=== PATIENT | female | born 1985 | race Caucasian/White ===

== ENCOUNTER 2022-03-06 21:13 | Emergency (ER) | payer BC, SELFPAY ==
[2022-03-06 21:16] VITALS: BP 132/78; PULSE 76; RESP 18; TEMP 36.6; O2SAT 98; BMI 32.1
--- NOTE | 2022-03-06 21:46 | CRLHL7_ITS ---
For Patients: As a result of the Cures Act, medical imaging exams and procedure reports are released immediately into your electronic medical record. You may view this report before your referring provider. If you have questions, please contact your health care provider. INDICATION: Right flank pain, history of stones TECHNIQUE: CT Abdomen and pelvis without i.v. contrast. Coronal and sagittal reformats were obtained. COMPARISON: None FINDINGS: Lower chest: Unremarkable. Liver: Unremarkable. Spleen: Unremarkable. Pancreas: Unremarkable. Gallbladder: Unremarkable. Kidney: There is a 9 mm stone present in the distal right ureter causing moderate right renal pelviectasis, pelvicaliectasis, and mild perinephric edema. The left kidney is unremarkable. Adrenal: Unremarkable. Bowel: Unremarkable. The appendix is normal in appearance and size. Vascular: Unremarkable. Lymph: Unremarkable. Peritoneum: Unremarkable. No pneumoperitoneum is seen. No significant ascites is noted. Pelvis: Unremarkable. Soft tissue: Unremarkable. Bone: Unremarkable for age. IMPRESSION: 1. There is a 9 mm stone present in the distal right ureter causing moderate right renal pelviectasis, pelvicaliectasis, and mild perinephric edema. Dictated by Stanley Tay MD @ 03/06/2022 11:00:07 PM Please note that all CT scans at this facility use dose modulation, iterative reconstruction, and/or weight-based dosing when appropriate to reduce radiation dose to as low as reasonably achievable. Dictated by: Stanley Tay MD @ 03/06/2022 23:00:12 (Electronically Signed)
[2022-03-06 21:57] LABS: Appearance Urine Clear (Clear); Bilirubin Urine Negative (Negative); Blood Urine 1+ (Negative); Color Urine Yellow (Yellow); Glucose Urine Negative (Negative); Ketones Urine Negative (Negative); Leukocyte Esterase Urine Negative (Negative); Nitrite Urine Negative (Negative); Protein Urine Negative (Negative); Specific Gravity Urine 1.025 (1.000-1.030); Urobilinogen Urine 0.2 (0.2-1.0)
[2022-03-06] MEDS: KETOROLAC 30 MG/ML inj IVP (22:07)
[2022-03-06] MEDS: 0.9 % SODIUM CHLORIDE 1000 ml 1,000 ML IV (22:07)
[2022-03-06 22:11] LABS: Bacteria Urine Few; WBC Urine 0-2 (0-5)
--- NOTE | 2022-03-06 23:12 | ED_ITS ---
HPI - Abdominal Pain General Chief Complaint: Flank Pain Stated Complaint: Possible kidney stone Time Seen by Provider: 03/06/22 21:40 History of Present Illness HPI narrative: Patient is a 7-year-old woman who comes right flank pain. The pain is in the mid axillary line on the right. She has no nausea no vomiting no fevers no chills but does have significant urinary frequency. Stone. She has had a kidney stone in the past. She describes her pain is severe. No other significant symptoms. Related Data Home Medications Medication Instructions Recorded Confirmed latanoprost 0.005 % eye drops 1 drp OPHTHALMIC (EYE) DAILY 03/06/22 03/06/22 Previous Rx's Medication Instructions Recorded tamsulosin 0.4 mg capsule (Flomax) 0.4 mg PO DAILY #14 cap 03/06/22 Allergies Allergy/AdvReac Type Severity Reaction Status Date / Time Penicillins Allergy Mild Verified 03/06/22 21:20 Review of Systems Status of ROS Reports: 10 or more systems reviewed and unremarkable except as noted in History and below Exam Narrative: Exam Narrative: EXAM GENERAL: Patient appears comfortable and well. EYES: No scleral icterus. LYMPH: No supraclavicular or cervical lymphadenopathy. SKIN: Visible skin seen during exam normal or with benign process only. EXT: No dependent lower extremity pedal edema. HEART: Regular rate and rhythm with no murmurs, rubs, or gallops. LUNGS: Clear to auscultation bilaterally with no crackles or wheezes. ABD: Soft, non tender, non distended. PSYCH: Good eye contact, speech is not pressured. Const: Vital Signs, click to edit/add: Vital Signs - 24 hr 03/06/22 21:16 Temperature 97.8 F Pulse Rate [Right Pulse Oximeter] 76 Respiratory Rate 18 Blood Pressure [Ri ght Upper Arm] 132/78 Pulse Oximetry 98 Course Course Hospital Course: CT of the abdomen pelvis upon my review shows a 9 mm. UA shows hematuria g of Zofran 1 L of normal saline and 30 mg of IV Reevaluation(s) Reevaluation #1: Patient feels that the IV fluids have been helpful. Time: 23:16 Vital Signs Vital signs: Initial Vital Signs Temperature 97.8 F 03/06/22 21:16 Temperature Source Temporal Artery Scan 03/06/22 21:16 Pulse Rate 76 03/06/22 21:16 Pulse Rhythm 03/06/22 21:16 Respiratory Rate 18 03/06/22 21:16 Blood Pressure 132/78 03/06/22 21:16 Blood Pressure Mean 96 03/06/22 21:16 Blood Pressure Position Sitting 03/06/22 21:16 Pulse Oximetry 98 03/06/22 21:16 Oxygen Delivery Method 03/06/22 21:16 Vital Signs Temperature 97.8 F 03/06/22 21:16 Pulse Rate 76 03/06/22 21:16 Respiratory Rate 18 03/06/22 21:16 Blood Pressure 132/78 03/06/22 21:16 Pulse Oximetry 98 03/06/22 21:16 Temperature 97.8 F 03/06/22 21:16 Pulse Rate 76 03/06/22 21:16 Respiratory Rate 18 03/06/22 21:16 Blood Pressure 132/78 03/06/22 21:16 Pulse Oximetry 98 03/06/22 21:16 MDM - Abdominal Pain Lab Data Labs: Lab Results 03/06/22 Range/Units 21:40 Urine Color Yellow (Yellow) Urine Appearance Clear (Clear) Urine pH 6.0 (5.0-8.5) Ur Specific [place] 1.025 (1.000-1.030) Urine Protein Negative (Negative) Urine Glucose (UA) Negative (Negative) Urine Ketones Negative (Negative) Urine Blood 1+ A (Negative) Urine Nitrite Negative (Negative) Urine Bilirubin Negative (Negative) Urine Urobilinogen 0.2 (0.2-1.0) Ur Leukocyte Esterase Negative (Negative) Urine RBC 10-25 A (0-2) Urine WBC 0-2 (0-5) Ur Squamous Epith Cells None (None-Few) Urine Bacteria Few A (None) Discharge Plan Discharge Clinical Impression: Kidney stone Patient Disposition: Home, Self-Care Condition: Stable Instructions: Kidney Stones (ED) Additional Instructions: Rest Fluids Early Branch as directed Flomax filled tomorrow as directed Follow up with your doctor tomorrow by phone to discuss Urology referral Activity Level: No Restrictions Discharge Diet: Regular Prescriptions: New tamsulosin [Flomax] 0.4 mg capsule 0.4 mg PO DAILY Qty: 14 2RF No Action latanoprost 0.005 % drops 1 drp ophthalmic (eye) DAILY 0RF Follow Up/Referrals: Thad Nunez MD [Primary Care Provider] - Stand Alone Forms: MyHealth Info Instructions
[2022-03-06 23:30] VITALS: BP 117/68; PULSE 69; RESP 16; O2SAT 98
== END 2022-03-06 23:35 | disposition home or self-care (01) ==
PROVIDERS: Emergency Provider Internal Medicine; PCP Family Medicine
DX: N20.0 Calculus of kidney (principal)
CPT/HCPCS: 74176; 81003; 81015; 87086; 96374; 99283; 99284; J1885; J7030

== ENCOUNTER 2022-05-15 14:40 | Outpatient (CLI) | payer BC, SELFPAY ==
--- NOTE | 2022-05-15 14:40 | CRLHL7_ITS ---
For Patients: As a result of the Century Cures Act, medical imaging exams and procedure reports are released immediately into your electronic medical record. You may view this report before your referring provider. If you have questions, please contact your health care provider. BILATERAL SCREENING DIGITAL MAMMOGRAM WITH COMPUTER-AIDED DETECTION AND TOMOSYNTHESIS, 05/15/2022 CLINICAL HISTORY: Asymptomatic 37-year-old female for screening mammogram. TECHNIQUE: CC and MLO views were obtained. These mammographic images have been obtained using full-field digital technique. These mammographic images were interpreted with the benefit of computer-aided detection and tomosynthesis. COMPARISON FILM: No comparisons. Baseline study. BREAST COMPOSITION: The breasts are heterogeneously dense, which may obscure small masses. FINDINGS: Possible 2-cm asymmetry in the LEFT breast 3 o`clock position, 10 cm from the nipple. Negative findings in the RIGHT breast. IMPRESSION: Possible LEFT breast asymmetry. RECOMMENDATION: Recommend MLO spot compression view, 90-degree lateral view, and exaggerated CC tomosynthesis view. Additionally, ultrasound may e needed during the diagnostic evaluation. The [facility] will contact the patient for follow-up. ASSESSMENT: BI-RADS Category 0: Incomplete: Need Additional Imaging Evaluation and/or Prior Mammograms for Comparison. A lay language report of this examination will be provided to the patient. NEYDA ASHFORD M.D. Diagnostic/Breast Radiologist [email or web address] Transcribed: 11:[address]/Dictated by: Neyda Ashford MD @ 05/16/2022 8:31:[address]/Dictated by: Neyda Ashford MD @ 05/16/2022 8:31:00 AM (Electronically Signed)
== END 2022-05-15 14:41 | disposition home or self-care (01) ==
LOC: MAMMO 14:41
PROVIDERS: PCP Family Medicine; Visit Provider Nurse Practitioner Family
DX: Z12.31 Encounter for screening mammogram for malignant neoplasm of breast (principal); N63.20 Unspecified lump in the left breast, unspecified quadrant
CPT/HCPCS: 77063; 77067

== ENCOUNTER 2022-05-18 09:47 | Outpatient (CLI) | payer BC, SELFPAY ==
--- NOTE | 2022-05-18 09:45 | CRLHL7_ITS ---
For Patients: As a result of the Cures Act, medical imaging exams and procedure reports are released immediately into your electronic medical record. You may view this report before your referring provider. If you have questions, please contact your health care provider. LEFT DIAGNOSTIC MAMMOGRAM WITH TOMOSYNTHESIS AND COMPUTER-AIDED DETECTION LEFT BREAST ULTRASOUND CLINICAL HISTORY: Possible asymmetry. TECHNIQUE: Digital diagnostic LEFT mammogram spot compression views were obtained. These mammographic images have been obtained using full-field digital technique. These mammographic images were interpreted with the benefit of computer-aided detection. Breast Tomosynthesis was used in this interpretation. COMPARISON FILM: 05/15/2022. BREAST COMPOSITION: The breasts are heterogeneously dense, which may obscure small masses. FINDINGS: Spot compression views demonstrate spreading out of the glandular tissue. Ultrasound over the LEFT superior breast 9 to 3 o???clock position demonstrates no suspicious findings. IMPRESSION: No mammographic or sonographic findings for malignancy. Would recommend return to yearly screening mammography. ASSESSMENT: BI-RADS Category 2: Benign A lay language report of this examination will be provided to the patient. Neyda Ashford M.D. Diagnostic/Breast Radiologist [email or web address] verde/Dictated by: Neyda Ashford MD @ 05/18/2022 12:02:00 PM (Electronically Signed)
--- NOTE | 2022-05-18 10:15 | CRLHL7_ITS ---
For Patients: As a result of the Cures Act, medical imaging exams and procedure reports are released immediately into your electronic medical record. You may view this report before your referring provider. If you have questions, please contact your health care provider. PLEASE SEE DIGITAL DIAGNOSTIC LEFT MAMMOGRAM PERFORMED SAME DAY [email or web address]:[email or web address] verde/Dictated by: Neyda Ashford MD @ 05/18/2022 11:16:00 AM (Electronically Signed)
== END 2022-05-18 09:48 | disposition home or self-care (01) ==
LOC: MAMMO 09:48
PROVIDERS: PCP Family Medicine; Visit Provider Family Medicine
DX: R92.8 Other abnormal and inconclusive findings on diagnostic imaging of breast (principal); R92.2 Inconclusive mammogram
CPT/HCPCS: 76642; 77065; G0279

== ENCOUNTER 2022-09-17 09:52 | Observation (INO) | payer BC, SELFPAY ==
[2022-09-17] VITALS (7 sets, daily range): BP systolic 114–136; BP diastolic 74–93; PULSE 85–100; RESP 16–18; TEMP 36.3–36.9; O2SAT 96–100; BMI 33.0; BMI 31.5
--- NOTE | 2022-09-17 10:22 | ED_ITS ---
HPI - General Adult General Time Seen by Provider: 10:22 Date Seen: 09/17/22 Chief complaint: Ear/Nose/Throat Problem Stated complaint: Throat pain and swelling Time Seen by Provider: 09/17/22 10:04 Source: patient, RN notes reviewed and old records reviewed Mode of arrival: ambulatory Limitations: no limitations History of Present Illness HPI narrative: Patient is a very pleasant 37-year-old female with history of anxiety who comes to the emergency room for evaluation of sore and swollen throat. Patient notes she has had 7 days of sore throat was seen 2 days ago at which time her strep test was negative. Today she had worsening symptoms thus went back and was found to have a positive strep test but sent to the emergency room for if for concerns of peritonsillar abscess by Dr. Collier. Patient notes no vomiting. Patient is having a very hard time talking. She is able to tell me that it is hard for her to swallow. She notes that she feels like her throat is closing. She denies any wheezing at this time. She has not had fevers with this. She notes no past history of strep. In the remote past she did have thrush that she was treated for. Patient denies abdominal pain. Related Data Home Medications Medication Instructions Recorded Confirmed No Known Home Medications 09/14/22 09/17/22 Allergies Allergy/AdvReac Type Severity Reaction Status Date / Time penicillin V Allergy Intermediate Hives Verified 09/17/22 11:34 Penicillins Allergy Mild Verified 09/17/22 11:34 Review of Systems Status of ROS: Reports: 10 or more systems reviewed and unremarkable except as noted in History and below Narrative: Denies any possibility of she is on the seble Const: Denies: fever or chills Eyes: Denies: change in vision ENMT: Reports: throat pain, neck pain (Right greater than left), throat swelling and difficulty swallowing Cardio: Denies: chest pain or shortness of breath with exertion Resp: Denies: shortness of breath, cough or wheezing GI: Reports: difficulty swallowing; Denies: abdominal pain, nausea, vomiting or diarrhea : Denies: painful urination Musculo: Reports: neck pain (Right greater than left) Allergy/Immuno: Reports: throat swelling; Denies: wheezing [facility] Medical History (Updated 09/18/22 @ 16:11 by Ann Meraz MD) Glaucoma History of anxiety disorder Kidney stone Penicillin allergy Sore throat Strep pharyngitis Vaginal delivery Surgical History History of dilation and curettage Family History Mother History of kidney stones Sister Breast cancer Aunt Breast cancer Brother Non Hodgkin's lymphoma Maternal Grandmother CHF (congestive heart failure) Social History (Updated 09/17/22 @ 15:34 by Markell Novak MD) Narrative: . 2 children, a 12-year-old son and a 5-year-old daughter. 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 She reports drinking 1 alcoholic beverage per day. She does not smoke. She did try THC gummy which did not help her pain. Her sister, Omaira Sherman, is healthcare power of attorney recruiter. Phone number [phone] Smoking Status: Never smoker Do you use any of these nicotine containing products: None Second hand tobacco smoke exposure: No How often do you have a drink containing alcohol: 2-3 times a week Alcohol type: wine and hard liquor How many standard drinks containing alcohol do you have on a typical day: 1 or 2 How often do you have six or more drinks on one occasion: Never AUDIT-C Alcohol total score: 3 Non-prescribed substance use: marijuana (any form) Caffeine: Yes service: No Exam Narrative: Exam Narrative: Patient is alert and oriented. Speaking with hot potato type voice. Eyes are clear. Oral cavity shows swelling of the soft palate peritonsillar areas bilaterally. Positive for anterior cervical lymphadenopathy right greater than left. She is not clearing her throat or exhibiting any stridor. She is not tripoding. mild trismus Heart with regular rate and rhythm and lungs are clear to auscultation. Abdomen soft nontender. Moving all extremities. Const: Vital Signs, click to edit/add: Vital Signs - 24 hr 09/18/22 03:00 09/18/22 07:00 09/18/22 11:00 Temperature 97.7 F 98.3 F 98.4 F Pulse Rate [Left P ulse Oximeter] 77 98 98 Respiratory Rate 16 16 16 Blood Pressure [Le ft Arm] 118/75 122/79 121/83 Pulse Oximetry 96 100 98 Oxygen Delivery Me thod Room Air Room Air Room Air 09/18/22 15:30 Temperature 98 F Pulse Rate [Left P ulse Oximeter] 88 Respiratory Rate 16 Blood Pressure [Le ft Arm] 127/82 Pulse Oximetry 96 Oxygen Delivery Me thod Room Air Documenting provider has reviewed patient's vital signs: yes Course Course Hospital Course: At this time notified that patient has now had a positive strep test out of urgent care. I am concerned about patient's airway and potential abscess and therefore will have her undergo CT soft tissue neck. Will also treated with antibiotics and steroids at this time. Patient has a penicillin allergy and thus will treat with clindamycin after speaking with pharmacy. Will also give her 10 mg dexamethasone and 1 L of normal saline. Given patient's difficulty with swallowing and statement regarding feeling like her airway is closing we will move her from room to to stable room. At this time also check to ensure I do have anesthesia backup in the event that she would need emergent intubation. At this time again not she is not exhibiting any stridor or tripoding and will continue to monitor. Reevaluation(s) Reevaluation #1: Nursing staff notes challenges with IV placement. Nurse ornamental metal erector apprentice had to be contacted for assistance. Patient has now returned from CT. She does not feel like she has worsening. IV was established and patient is receiving antibiotic and steroids. I will give avoid Toradol in the treatment of pain as this patient has a potential for surgery today. Will use morphine 2 mg and Zofran 4 mg. Vital Signs Vital signs: Initial Vital Signs Temperature 97.4 F L 09/17/22 09:56 Temperature Source Temporal Artery Scan 09/17/22 09:56 Pulse Rate 97 09/17/22 09:56 Respiratory Rate 18 09/17/22 09:56 Blood Pressure 136/93 H 09/17/22 09:56 Blood Pressure Mean 107 09/17/22 09:56 Blood Pressure Position Supine 09/17/22 09:56 Pulse Oximetry 98 09/17/22 09:56 Oxygen Delivery Method 09/17/22 09:56 Vital Signs Temperature 97.4 F L 09/17/22 09:56 Pulse Rate 97 09/17/22 09:56 Respiratory Rate 18 09/17/22 09:56 Blood Pressure 136/93 H 09/17/22 09:56 Pulse Oximetry 98 02/05/23 09:56 Oxygen Delivery Method 09/17/22 09:56 Temperature 98.5 F 09/18/22 19:00 Pulse Rate 105 H 09/18/22 19:00 Respiratory Rate 16 09/18/22 19:00 Blood Pressure 141/84 H 09/18/22 19:00 Pulse Oximetry 98 09/18/22 19:00 Oxygen Delivery Method 09/18/22 19:00 Medical Decision Making MDM Narrative Medical decision making narrative: 1. Peritonsillar abscess-abscess measuring 1.4 cm at this time. Patient given clindamycin 900 mg secondary to penicillin allergy as well as dexamethasone [address] 1 L of normal saline also given. Consult with ENT recommends admission for IV antibiotics and steroids. Unfortunately we do not have inpatient beds at this time and therefore plan on boarding patient in the ED. will continue antibiotics, fluids and steroids. 2. Strep positive 3. Throat discomfort-initially treated with morphine and now will try Dilaudid 0.5 mg IV. Zofran 4 mg IV pre treatment. 4. Disposition-boarding at this time until patient has bed availability. Addendum: Bed availability improved and we were able to admit patient under the care of Dr. Novak. Telephone consult with ENT prior to that. Medical Records Medical records reviewed: Yes I reviewed the patient's medical records Lab Data Lab results reviewed: Yes I reviewed the patient's lab results Labs: Lab Results 09/17/22 09/17/22 09/17/22 Range/Units 10:35 10:41 11:22 WBC 10.50 (4.50-11.00) K/uL RBC 5.06 (4.00-5.20) m/uL Hgb 14.6 (12.0-16.0) gm/dL Hct 43.7 (33.0-51.0) % MCV 86 (80-100) fL MCH 29 (26-34) pg MCHC 33 (32-36) gm/dL RDW Coeff of Anita 11.8 (11.5-15.5) % Plt Count 189 (140-440) K/uL Neut % (Auto) 75.6 H (42.0-72.0) % Lymph % (Auto) 13.3 L (20-44) % [place] % (Auto) 8.0 (0.0-11.0) % Eos % (Auto) 2.5 (0.0-7.0) % Baso % (Auto) 0.2 (0.0-3.0) % Neut # (Auto) 7.90 H (1.7-7.0) K/uL Lymph # (Auto) 1.40 (0.90-2.90) K/uL [place] # (Auto) 0.80 (0.00-0.90) K/UL Eos # (Auto) 0.26 (0.00-0.50) K/uL Baso # (Auto) 0.02 (0.00-0.30) K/uL Sodium (135-149) mmol/L Potassium (3.6-5.1) mmol/L Chloride (96-114) mmol/L Carbon Dioxide (20-32) mmol/L BUN (5-24) mg/dL Creatinine (0.5-1.5) mg/dL Estimated Creat Clear Estimated GFR ml/min Glucose (60-115) mg/dL Calcium (8.4-10.6) mg/dL Total Bilirubin (0.1-1.5) mg/dL AST (12-35) U/L ALT (4-35) U/L Alkaline Phosphatase (40-150) U/L C-Reactive Protein (0.5-1.0) mg/dL Total Protein (6.0-8.3) g/dL Albumin (3.3-5.0) g/dL Urine Color Yellow (Yellow) Urine Appearance Clear (Clear) Urine pH 8.0 (5.0-8.5) Ur Specific [place] 1.015 (1.000-1.030) Urine Protein Negative (Negative) Urine Glucose (UA) Negative (Negative) Urine Ketones Negative (Negative) Urine Blood Trace-intact A (Negative) Urine Nitrite Negative (Negative) Urine Bilirubin Negative (Negative) Urine Urobilinogen 0.2 (0.2-1.0) Ur Leukocyte Esterase Negative (Negative) Urine RBC 0-2 (0-2) Urine WBC 0-2 (0-5) Ur Squamous Epith Cells Few (None-Few) Urine Bacteria Moderate A (None) SARS-CoV-2 (PCR) Negative SARS-CoV-2 (Negative) Monoscreen (Negative) Influenza Type A (PCR) Negative PCR FLU A (Negative) Influenza Type B (PCR) Negative PCR FLU B (Negative) RSV (PCR) Negative PCR RSV (Negative) 09/17/22 09/17/22 09/18/22 Range/Units 11:22 11:22 05:34 WBC 11.60 H (4.50-11.00) K/uL RBC 4.90 (4.00-5.20) m/uL Hgb 14.3 (12.0-16.0) gm/dL Hct 41.7 (33.0-51.0) % MCV 85 (80-100) fL MCH 29 (26-34) pg MCHC 34 (32-36) gm/dL RDW Coeff of Aniat 11.7 (11.5-15.5) % Plt Count 230 (140-440) K/uL Neut % (Auto) 81.8 H (42.0-72.0) % Lymph % (Auto) 10.4 L (20-44) % [place] % (Auto) 6.7 (0.0-11.0) % Eos % (Auto) 0.1 (0.0-7.0) % Baso % (Auto) 0.1 (0.0-3.0) % Neut # (Auto) 9.50 H (1.7-7.0) K/uL Lymph # (Auto) 1.20 (0.90-2.90) K/uL [place] # (Auto) 0.80 (0.00-0.90) K/UL Eos # (Auto) 0.00 (0.00-0.50) K/uL Baso # (Auto) 0.00 (0.00-0.30) K/uL Sodium 141 (135-149) mmol/L Potassium 3.8 (3.6-5.1) mmol/L Chloride 108 (96-114) mmol/L Carbon Dioxide 27 (20-32) mmol/L BUN 5 (5-24) mg/dL Creatinine 0.6 (0.5-1.5) mg/dL Estimated Creat Clear 124.84 Estimated GFR 118 ml/min Glucose 94 (60-115) mg/dL Calcium 9.0 (8.4-10.6) mg/dL Total Bilirubin 0.8 (0.1-1.5) mg/dL AST 19 (12-35) U/L ALT 21 (4-35) U/L Alkaline Phosphatase 85 (40-150) U/L C-Reactive Protein 3.1 H (0.5-1.0) mg/dL Total Protein 7.5 (6.0-8.3) g/dL Albumin 4.3 (3.3-5.0) g/dL Urine Color (Yellow) Urine Appearance (Clear) Urine pH (5.0-8.5) Ur Specific [place] (1.000-1.030) Urine Protein (Negative) Urine Glucose (UA) (Negative) Urine Ketones (Negative) Urine Blood (Negative) Urine Nitrite (Negative) Urine Bilirubin (Negative) Urine Urobilinogen (0.2-1.0) Ur Leukocyte Esterase (Negative) Urine RBC (0-2) Urine WBC (0-5) Ur Squamous Epith Cells (None-Few) Urine Bacteria (None) SARS-CoV-2 (PCR) (Negative) Monoscreen Negative (Negative) Influenza Type A (PCR) (Negative) Influenza Type B (PCR) (Negative) RSV (PCR) (Negative) 09/18/22 Range/Units 05:34 WBC (4.50-11.00) K/uL RBC (4.00-5.20) m/uL Hgb (12.0-16.0) gm/dL Hct (33.0-51.0) % MCV (80-100) fL MCH (26-34) pg MCHC (32-36) gm/dL RDW Coeff of Anita (11.5-15.5) % Plt Count (140-440) K/uL Neut % (Auto) (42.0-72.0) % Lymph % (Auto) (20-44) % [place] % (Auto) (0.0-11.0) % Eos % (Auto) (0.0-7.0) % Baso % (Auto) (0.0-3.0) % Neut # (Auto) (1.7-7.0) K/uL Lymph # (Auto) (0.90-2.90) K/uL [place] # (Auto) (0.00-0.90) K/UL Eos # (Auto) (0.00-0.50) K/uL Baso # (Auto) (0.00-0.30) K/uL Sodium (135-149) mmol/L Potassium (3.6-5.1) mmol/L Chloride (96-114) mmol/L Carbon Dioxide (20-32) mmol/L BUN (5-24) mg/dL Creatinine (0.5-1.5) mg/dL Estimated Creat Clear Estimated GFR ml/min Glucose (60-115) mg/dL Calcium (8.4-10.6) mg/dL Total Bilirubin (0.1-1.5) mg/dL AST (12-35) U/L ALT (4-35) U/L Alkaline Phosphatase (40-150) U/L C-Reactive Protein 5.6 H (0.5-1.0) mg/dL Total Protein (6.0-8.3) g/dL Albumin (3.3-5.0) g/dL Urine Color (Yellow) Urine Appearance (Clear) Urine pH (5.0-8.5) Ur Specific [place] (1.000-1.030) Urine Protein (Negative) Urine Glucose (UA) (Negative) Urine Ketones (Negative) Urine Blood (Negative) Urine Nitrite (Negative) Urine Bilirubin (Negative) Urine Urobilinogen (0.2-1.0) Ur Leukocyte Esterase (Negative) Urine RBC (0-2) Urine WBC (0-5) Ur Squamous Epith Cells (None-Few) Urine Bacteria (None) SARS-CoV-2 (PCR) (Negative) Monoscreen (Negative) Influenza Type A (PCR) (Negative) Influenza Type B (PCR) (Negative) RSV (PCR) (Negative) Imaging Data Soft tissue neck CT: Attestation: I have reviewed the pertinent imaging results. My impression: Abscess noted on the right. Radiologist's impression: here is asymmetric enhancement and fullness of the palatine tonsils, right worse than left, with suggestion of a peripherally enhancing fluid collection involving the medial right palatine tonsil. This collection is obscured due to dental amalgam artifact, but estimated at approximately 1.4 cm (series 3, image 26). Slight prominence of the adenoidal tonsillar tissue. Edematous soft tissue changes are noted throughout the right parapharyngeal and submandibular spaces, without additional discrete/loculated fluid collection. Presumably reactive prominent level 2 nodes are noted bilaterally, right larger and more numerous than left. The oral cavity is unremarkable. The remaining pharyngeal mucosal spaces are unremarkable. The laryngeal structures appear within normal limits, without evidence of overt airway compromise. No suspicious findings at the parotid, submandibular, or thyroid glands. The vascular structures opacify normally with contrast material. Regional osseous structures are unremarkable. Mucous retention cysts are noted in the right maxillary antrum. No paranasal sinus air-fluid levels or mastoid effusions. Unremarkable visualized orbits. Clear lung apices. IMPRESSION: 1. Finding consistent with tonsillitis, with evidence of a right palatine tonsillar/peritonsillar abscess measuring approximately 1.4 cm. 2. No overt airway compromise. Reactive cervical lymphadenopathy. Discharge Plan Discharge Clinical Impression: Abscess, peritonsillar, Strep pharyngitis Patient Disposition: Admitted As Inpatient Condition: Improved
--- NOTE | 2022-09-17 10:30 | CRLHL7_ITS ---
For Patients: As a result of the Century Cures Act, medical imaging exams and procedure reports are released immediately into your electronic medical record. You may view this report before your referring provider. If you have questions, please contact your health care provider. INDICATION: Strep positive, difficulty swallowing TECHNIQUE: CT of the neck with 100 ml iodinated contrast agent. Coronal and sagittal reconstructions are included. COMPARISON: None available FINDINGS: There is asymmetric enhancement and fullness of the palatine tonsils, right worse than left, with suggestion of a peripherally enhancing fluid collection involving the medial right palatine tonsil. This collection is obscured due to dental amalgam artifact, but estimated at approximately 1.4 cm (series 3, image 26). Slight prominence of the adenoidal tonsillar tissue. Edematous soft tissue changes are noted throughout the right parapharyngeal and submandibular spaces, without additional discrete/loculated fluid collection. Presumably reactive prominent level 2 nodes are noted bilaterally, right larger and more numerous than left. The oral cavity is unremarkable. The remaining pharyngeal mucosal spaces are unremarkable. The laryngeal structures appear within normal limits, without evidence of overt airway compromise. No suspicious findings at the parotid, submandibular, or thyroid glands. The vascular structures opacify normally with contrast material. Regional osseous structures are unremarkable. Mucous retention cysts are noted in the right maxillary antrum. No paranasal sinus air-fluid levels or mastoid effusions. Unremarkable visualized orbits. Clear lung apices. IMPRESSION: 1. Finding consistent with tonsillitis, with evidence of a right palatine tonsillar/peritonsillar abscess measuring approximately 1.4 cm. 2. No overt airway compromise. Reactive cervical lymphadenopathy. Please note that all CT scans at this facility use dose modulation, iterative reconstruction, and/or weight-based dosing when appropriate to reduce radiation dose to as low as reasonably achievable. Dictated by Kate Henry MD @ 09/17/2022 12:34:42 PM (Electronically Signed)
[2022-09-17 10:42] LABS: Appearance Urine Clear (Clear); Bilirubin Urine Negative (Negative); Blood Urine Trace-intact (Negative); Color Urine Yellow (Yellow); Glucose Urine Negative (Negative); Ketones Urine Negative (Negative); Leukocyte Esterase Urine Negative (Negative); Nitrite Urine Negative (Negative); Protein Urine Negative (Negative); Specific Gravity Urine 1.015 (1.000-1.030); Urobilinogen Urine 0.2 (0.2-1.0)
[2022-09-17 10:54] LABS: Bacteria Urine Moderate; RBC Urine 0-2 (0-2); Squamous Epithelial Cell Urine Few (None-Few); WBC Urine 0-2 (0-5)
[2022-09-17] MEDS: CLINDAMYCIN 900 MG/50 ML-D5W IVPB ×2 (11:13→18:38)
[2022-09-17] MEDS: dexAMETHasone 4 MG/ML VIAL 10 MG IV (11:21)
[2022-09-17] MEDS: 0.9 % SODIUM CHLORIDE 1000 ml 1,000 ML IV ×2 (11:21→12:51)
[2022-09-17 11:31] LABS: Basophils Absolute Auto 0.02 K/uL (0.00-0.30); Basophils Percent Auto 0.2 % (0.0-3.0); Eosinophils Absolute Auto 0.26 K/uL (0.00-0.50); Eosinophils Percent Auto 2.5 % (0.0-7.0); Hematocrit 43.7 % (33.0-51.0); Hemoglobin* 14.6 gm/dL (12.0-16.0); Immature Granulocytes Abs Auto 0.04 K/uL (0.00-0.30); Immature Granulocytes Pct Auto 0.4 %; Lymphocytes Percent Auto 13.3 % (20-44); Mean Corpuscular HGB Conc 33 gm/dL (32-36); Mean Corpuscular Hemoglobin 29 pg (26-34); Mean Corpuscular Volume 86 fL (80-100); Neutrophils Percent Auto 75.6 % (42.0-72.0); Platelet Count* 189 K/uL (140-440); RDW Coefficient of Variation % 11.8 % (11.5-15.5); Red Blood Count 5.06 m/uL (4.00-5.20)
[2022-09-17 11:33] LABS: Slide Review Reflex No
[2022-09-17 11:36] LABS: PCR FLU A Negative PCR FLU A (Negative); PCR FLU B Negative PCR FLU B (Negative); PCR RSV Negative PCR RSV (Negative)
[2022-09-17 11:38] LABS: SARS PCR* Negative SARS-CoV-2 (Negative)
[2022-09-17 11:56] LABS: Chloride* 108 mmol/L (96-114); Mono Screen* Negative (Negative)
[2022-09-17 11:57] LABS: Albumin* 4.3 g/dL (3.3-5.0); Potassium* 3.8 mmol/L (3.6-5.1); Sodium* 141 mmol/L (135-149)
[2022-09-17 11:59] LABS: Creatinine* 0.6 mg/dL (0.5-1.5); Est. Creatinine Clearance* 124.84; Estimated Glomerular Filt Rate 118 ml/min
[2022-09-17 12:00] LABS: Alanine Aminotransferase* 21 U/L (4-35); Alkaline Phosphatase* 85 U/L (40-150); Aspartate Amino Transferase* 19 U/L (12-35); Bilirubin Total* 0.8 mg/dL (0.1-1.5); Blood Urea Nitrogen* 5 mg/dL (5-24); Carbon Dioxide* 27 mmol/L (20-32); Glucose* 94 mg/dL (60-115); Total Protein* 7.5 g/dL (6.0-8.3)
[2022-09-17 12:03] LABS: C Reactive Protein* 3.1 mg/dL (0.5-1.0)
[2022-09-17] MEDS: ONDANSETRON 2 MG/ML inj 4 MG IVP (12:09)
[2022-09-17] MEDS: MORPHINE 2 MG/ML inj IVP (12:10)
[2022-09-17] MEDS: HYDROmorphone 0.5 mg/0.5 ml inj IVP (14:22)
--- NOTE | 2022-09-17 15:10 | ED.NURSE ---
Report given to nurse on Med/Surg. Patient can go to room 262 when ready.
--- NOTE | 2022-09-17 15:29 | P.IMHP_ITS ---
Hospitalist- H&P: HPI History of Present Illness Date Seen: 09/17/22 Chief complaint: Throat pain and swelling Narrative: Allie Shay is a 37 year old female presents with a 1 week history of progressive sore throat. She has had increasing problems with swallowing to the point now that she is unable to drink liquids or even manage her own secretions without a lot of pain. She is having trouble to speaking as well. She reports minimal p.o. intake yesterday and none today. She is not aware of a fever. She has not had cold symptoms or cough. She was seen in urgent care a couple days ago and thought to have a viral pharyngitis. She was seen again today and had a positive strep test. Because she is unable to swallow she came to the emergency department. No previous history of severe pharyngitis or complicated throat infections. She has been taking acetaminophen and ibuprofen for the pain She does note that for the last month she is feeling like she is having some difficulty with swallowing. This was occurring before she had a sore throat. She reported that she just had to drink a lot a water to wash food down her throat. She saw her dentist who told her that she had TMJ. Review of Systems Narrative: Review of systems is negative except as noted above. She notes that she has otherwise been feeling generally well. Her history of penicillin allergy is that she had a rash when she was a baby. [facility] Medical History (Updated 09/17/22 @ 15:37 by Markell Novak MD) Glaucoma History of anxiety disorder Kidney stone Penicillin allergy Sore throat Strep pharyngitis Vaginal delivery Surgical History History of dilation and curettage Family History Mother History of kidney stones Sister Breast cancer Aunt Breast cancer Brother Non Hodgkin's lymphoma Maternal Grandmother CHF (congestive heart failure) Social History (Updated 09/17/22 @ 15:34 by Markell Novak MD) Narrative: . 2 children, a 12-year-old son and a 5-year-old daughter. 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 She reports drinking 1 alcoholic beverage per day. She does not smoke. She did try THC gummy which did not help her pain. Her sister, Omaira Sherman, is healthcare power of apartment maintenance worker. Phone number [phone] Smoking Status: Never smoker Do you use any of these nicotine containing products: None Second hand tobacco smoke exposure: No How often do you have a drink containing alcohol: 2-3 times a week How many standard drinks containing alcohol do you have on a typical day: 1 or 2 How often do you have six or more drinks on one occasion: Never AUDIT-C Alcohol total score: 3 Non-prescribed substance use: marijuana (any form) Meds Home Medications and Allergies Home Medications Medication Instructions Recorded Confirmed Type No Known Home Medications 09/14/22 09/17/22 History Allergies Allergy/AdvReac Type Severity Reaction Status Date / Time penicillin V Allergy Intermediate Hives Verified 09/17/22 11:34 Penicillins Allergy Mild Verified 09/17/22 11:34 Exam Narrative: Exam Narrative: She is sitting in bed and appears relatively comfortable. She speaks with a very soft muffled voice. There is no obvious stridor or increased work or rate of breathing. Oropharynx notable for fairly severely enlarged tonsils bilaterally with moderate amount of exudate. Tonsils are meeting in the midline. Neck is supple and diffusely tender without obvious adenopathy. There is no stridor. Respirations are clear to auscultation. Good air exchange all lung [place]. Cardiovascular: S1, S2, regular rate and rhythm. No murmur gallop or rub. Abdomen: Bowel sounds active. Abdomen is soft without tenderness or mass. Extremities without edema. She has good peripheral perfusion and good peripheral pulses. There is no rash. Const: Vital Signs, click to edit/add: Vital Signs - 24 hr 09/17/22 09:56 09/17/22 11:24 09/17/22 13:14 Temperature 97.4 F L Pulse Rate [Pulse Oximeter] 97 100 95 Respiratory Rate 18 16 Blood Pressure [Ri ght Upper Arm] 136/93 H 133/87 126/85 Pulse Oximetry 98 100 98 Oxygen Delivery Me thod Room Air Room Air Room Air 09/17/22 14:37 Temperature Pulse Rate [Pulse Oximeter] 86 Respiratory Rate Blood Pressure [Ri ght Upper Arm] 121/76 Pulse Oximetry 96 Oxygen Delivery Me thod Room Air Documenting provider has reviewed patient's vital signs: yes Hospitalist - H&P: Result Labs Labs: Short CBC 09/17/22 Range/Units 11:22 WBC 10.50 (4.50-11.00) K/uL Hgb 14.6 (12.0-16.0) gm/dL Hct 43.7 (33.0-51.0) % Plt Count 189 (140-440) K/uL BMP 09/17/22 11:22 Sodium 141 Potassium 3.8 Chloride 108 Carbon Dioxide 27 BUN 5 Creatinine 0.6 Glucose 94 Calcium 9.0 Liver Function 09/17/22 Range/Units 11:22 Total Bilirubin 0.8 (0.1-1.5) mg/dL AST 19 (12-35) U/L ALT 21 (4-35) U/L Alkaline Phosphatase 85 (40-150) U/L Albumin 4.3 (3.3-5.0) g/dL Urine 09/17/22 Range/Units 10:35 Urine Color Yellow (Yellow) Urine Appearance Clear (Clear) Urine pH 8.0 (5.0-8.5) Ur Specific [place] 1.015 (1.000-1.030) Urine Protein Negative (Negative) Urine Glucose (UA) Negative (Negative) Assessment and Plan Assessment and plan (1) Abscess, peritonsillar: Status: Acute (2) Strep pharyngitis: Status: Acute (3) History of anxiety disorder: Status: Acute (4) Penicillin allergy: Problem comment: History of a rash that occurred when she was a baby. No further details available. Consider further evaluation for penicillin allergy as an outpatient Status: Acute Plan She will be admitted to the hospital for IV antibiotics, IV fluids and airway monitoring. Dr. Harden has been contacted by phone. Total time spent today is 60 minutes, 40 minutes in coordination of care and discussing with patient and other providers management of peritonsillar abscess.
--- NOTE | 2022-09-17 17:21 | PC.NURSE ---
Shift Summary: Patient pleasant and cooperative. Up independently, on full liquid diet. Had PRN medication prior to arriving to floor, patient states medication was effective for pain control. Verbalized swallowing is more tolerable now, tolerating liquids. Afebrile, vitals WNL.
[2022-09-17] MEDS: SODIUM CHLORIDE 0.9 % (FLUSH) 10 ML SYRINGE 5 ML IVF ×2 (18:34→21:46)
[2022-09-17] MEDS: 0.9 % SODIUM CHLORIDE 250 ml IV (18:38)
[2022-09-17] MEDS: OXYCODONE 1 MG/ML ORAL SOLN 5 MG PO (21:45)
[2022-09-18] MEDS: CLINDAMYCIN 900 MG/50 ML-D5W IVPB ×3 (02:36→19:29)
[2022-09-18] MEDS: SODIUM CHLORIDE 0.9 % (FLUSH) 10 ML SYRINGE 5 ML IVF ×2 (02:37→07:40)
[2022-09-18 03:00] VITALS: BP 118/75; PULSE 77; RESP 16; TEMP 36.5; O2SAT 96
--- NOTE | 2022-09-18 06:28 | PC.NURSE ---
Shift note: Pt is doing well. Tolerating pain which was rated between 3 and 5 very well. Still complain of dysphagia and tenderness to the neck Ambulate independently to and from the BR. Pt vitally stable.
[2022-09-18 06:36] LABS: Basophils Percent Auto 0.1 % (0.0-3.0); Eosinophils Percent Auto 0.1 % (0.0-7.0); Hematocrit 41.7 % (33.0-51.0); Hemoglobin* 14.3 gm/dL (12.0-16.0); Immature Granulocytes Pct Auto 0.9 %; Lymphocytes Percent Auto 10.4 % (20-44); Mean Corpuscular HGB Conc 34 gm/dL (32-36); Mean Corpuscular Hemoglobin 29 pg (26-34); Mean Corpuscular Volume 85 fL (80-100); Monocytes Percent Auto 6.7 % (0.0-11.0); Neutrophils Percent Auto 81.8 % (42.0-72.0); Platelet Count* 230 K/uL (140-440); RDW Coefficient of Variation % 11.7 % (11.5-15.5); Slide Review Reflex No
[2022-09-18 06:42] LABS: C Reactive Protein* 5.6 mg/dL (0.5-1.0)
[2022-09-18 07:00] VITALS: BP 122/79; PULSE 98; RESP 16; TEMP 36.8; O2SAT 100
[2022-09-18] MEDS: dexAMETHasone 2 MG TABLET 6 MG PO (07:38)
[2022-09-18] MEDS: SENNOSIDES/DOCUSATE TABLET 1 TAB PO (07:38)
[2022-09-18 11:00] VITALS: BP 121/83; PULSE 98; RESP 16; TEMP 36.9; O2SAT 98
--- NOTE | 2022-09-18 12:30 | CRLHL7_ITS ---
For Patients: As a result of the Century Cures Act, medical imaging exams and procedure reports are released immediately into your electronic medical record. You may view this report before your referring provider. If you have questions, please contact your health care provider. Indication: Follow-up peritonsillar abscess Technique: Volumetric multidetector CT images of the cervical soft tissues were obtained after the administration of low osmolar intravenous contrast. 98 cc Isovue 370 low osmolar intravenous contrast Comparison: None available. Findings: The partially visualized brain parenchyma is normal in attenuation without evidence of abnormal enhancement. The orbits and their contents are within normal limits. The paranasal sinuses are clear. The mastoid air cells are clear. The nasopharynx is unremarkable. The fossae of Rosenmuller are clear. There is again seen marked enlargement of the right greater than left palatine tonsils slightly improved from comparison with decreased size of intra tonsillar abscess measuring 9.5 x 8.1 millimeters, previously measuring 11.6 x 8.7 millimeters. The hypopharynx is clear. The deep spaces of the neck are otherwise preserved. The vocal folds are nonthickened with symmetrical appearance. The thyroid gland is normal in attenuation. There are reactive cervical lymph nodes again seen. The jugular veins are patent. The carotid arteries demonstrate no significant atherosclerotic narrowing. The lung apices are clear. The cervical vertebral body heights are grossly maintained with reversal of the normal cervical lordosis. 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 Impression: Demonstration of treatment response changes with decreased amparo pharyngeal edema and palatine tonsillar edema with decreasing size of previously seen right intra tonsillar/peritonsillar abscess currently measuring 9.5 millimeters, previously measuring 11.6 millimeters. Please note that all CT scans at this facility use dose modulation, iterative reconstruction, and/or weight-based dosing when appropriate to reduce radiation dose to as low as reasonably achievable. Dictated by Ricardo Rodriguez MD @ 09/18/2022 2:50:40 PM (Electronically Signed)
--- NOTE | 2022-09-18 14:19 | PC.NURSE ---
Pt is alert and oriented x3, pleasant and cooperative. Afebrile.?Pt denies pain, chest pain SOB and N/V. Pt is tolerating full liquid diet?and is up IND in room.???
[2022-09-18 15:30] VITALS: BP 127/82; PULSE 88; RESP 16; TEMP 36.6; O2SAT 96
--- NOTE | 2022-09-18 16:03 | P.IMPN_ITS ---
Progress Note: A&P Assessment and plan (1) Abscess, peritonsillar: Problem details: Improving. CT neck also improving. Advance diet and anticipate discharge tomorrow, transitioning to oral meds tomorrow upon discharge. Status: Acute (2) Penicillin allergy: Problem details: History of a rash that occurred when she was a baby. No further details available. Consider further evaluation for penicillin allergy as an outpatient Status: Acute (3) Systolic murmur: Problem details: Echocardiogram obtained and is normal. Suspect this is a flow murmur. Status: Acute Subjective Time Seen by Provider: 08:14 Date Seen: 09/18/22 Interval history: This morning she was feeling a little bit better, but still having difficulty swallowing pills. She notes about a month of difficulty swallowing without any viral prodrome. Within the last week she developed a sharp pain with swallowing on the right side at a got to the point where it was so painful to swallow that she started drooling. She notes that she is able to swallow now but it is difficult this morning. I spoke with Dr. Rondon over the phone this morning and he recommended obtaining a repeat CT neck at around 12:00 p.m. from the 08 13. This was done and shows improvement. Went to see her this afternoon she was also feeling much improved, but had not yet advanced her diet much. We discussed probiotic use today, risk of yeast infections with clindamycin as well as C diff. Exam Narrative: Exam Narrative: General: No acute distress. Sleepy, arousable, able to carry on a conversation, speaking with a muffled voice. No pallor. No jaundice. Oropharynx: Enlarged tonsils, each no longer touching midline. Erythema noted on the right soft palate uvula. No ulcers noted. No stridor difficulty breathing, no drooling. Mucous membranes moist. Cardiovascular: Regular rate and rhythm. Soft systolic murmur loudest at the left lower sternal border. Respiratory: Clear to auscultation bilaterally. No wheezes or crackles. Abdomen: Bowel sounds present. Soft, nondistended, nontender. Extremities: No pedal edema. Const: Vital Signs, click to edit/add: Vital Signs - 24 hr 09/17/22 19:00 09/17/22 23:00 09/18/22 03:00 Temperature 97.6 F 98.4 F 97.7 F Pulse Rate [Left P ulse Oximeter] 90 85 77 Respiratory Rate 16 16 16 Blood Pressure [Le ft Arm] 123/86 118/74 118/75 Pulse Oximetry 96 96 96 Oxygen Delivery Me thod Room Air Room Air Room Air 09/18/22 07:00 09/18/22 11:00 09/18/22 15:30 Temperature 98.3 F 98.4 F 98 F Pulse Rate [Left P ulse Oximeter] 98 98 88 Respiratory Rate 16 16 16 Blood Pressure [Le ft Arm] 122/79 121/83 127/82 Pulse Oximetry 100 98 96 Oxygen Delivery Me thod Room Air Room Air Room Air Documenting provider has reviewed patient's vital signs: yes Labs Labs: Laboratory Results - last 24 hr 09/18/22 09/18/22 05:34 05:34 WBC 11.60 H RBC 4.90 Hgb 14.3 Hct 41.7 MCV 85 MCH 29 MCHC 34 RDW Coeff of Anita 11.7 Plt Count 230 Neut % (Auto) 81.8 H Lymph % (Auto) 10.4 L [place] % (Auto) 6.7 Eos % (Auto) 0.1 Baso % (Auto) 0.1 Neut # (Auto) 9.50 H Lymph # (Auto) 1.20 [place] # (Auto) 0.80 Eos # (Auto) 0.00 Baso # (Auto) 0.00 C-Reactive Protein 5.6 H Echo today: Normal. Ordering Physician: Ann Meraz M.D. Date of Service: 09/18/22 Procedure(s): CT soft tissue neck w con Accession Number(s): [id number] cc: Ann Meraz M.D.; Thad Nunez M.D.~ For Patients: As a result of the Century Cures Act, medical imaging exams and procedure reports are released immediately into your electronic medical record. You may view this report before your referring provider. If you have questions, please contact your health care provider. Indication: Follow-up peritonsillar abscess Technique: Volumetric multidetector CT images of the cervical soft tissues were obtained after the administration of low osmolar intravenous contrast. 98 cc Isovue 370 low osmolar intravenous contrast Comparison: None available. Findings: The partially visualized brain parenchyma is normal in attenuation without evidence of abnormal enhancement. The orbits and their contents are within normal limits. The paranasal sinuses are clear. The mastoid air cells are clear. The nasopharynx is unremarkable. The fossae of Rosenmuller are clear. There is again seen marked enlargement of the right greater than left palatine tonsils slightly improved from comparison with decreased size of intra tonsillar abscess measuring 9.5 x 8.1 millimeters, previously measuring 11.6 x 8.7 millimeters. The hypopharynx is clear. The deep spaces of the neck are otherwise preserved. The vocal folds are nonthickened with symmetrical appearance. The thyroid gland is normal in attenuation. There are reactive cervical lymph nodes again seen. The jugular veins are patent. The carotid arteries demonstrate no significant atherosclerotic narrowing. The lung apices are clear. The cervical vertebral body heights are grossly maintained with reversal of the normal cervical lordosis. 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 Impression: Demonstration of treatment response changes with decreased amparo pharyngeal edema and palatine tonsillar edema with decreasing size of previously seen right intra tonsillar/peritonsillar abscess currently measuring 9.5 millimeters, previously measuring 11.6 millimeters. Please note that all CT scans at this facility use dose modulation, iterative reconstruction, and/or weight-based dosing when appropriate to reduce radiation dose to as low as reasonably achievable. Dictated by Ricardo Rodriguez MD @ 09/18/2022 2:50:40 PM (Electronically Signed)
[2022-09-18 19:00] VITALS: BP 141/84; PULSE 105; RESP 16; TEMP 36.9; O2SAT 98
--- NOTE | 2022-09-18 22:39 | PC.NURSE ---
Shift [id number]- Patient denies pain throughout shift, but notes her throat is uncomfortable, states no need for pain medication. She says she feels a lot better than yesterday and is glad to be able to talk and swallow. She is up independently. Tolerates regular diet with no issues.
[2022-09-18 23:00] VITALS: RESP 18
[2022-09-19] MEDS: SODIUM CHLORIDE 0.9 % (FLUSH) 10 ML SYRINGE 5 ML IVF ×2 (02:41→09:31)
[2022-09-19] MEDS: CLINDAMYCIN 900 MG/50 ML-D5W IVPB ×2 (02:41→10:50)
[2022-09-19 03:00] VITALS: BP 100/66; PULSE 80; RESP 16; TEMP 36.8; O2SAT 98
[2022-09-19] MEDS: 0.9 % SODIUM CHLORIDE 250 ml IV (03:31)
--- NOTE | 2022-09-19 05:29 | PC.NURSE ---
[id number]: Patient pleasant and cooperative. Denies pain but acknowledges slight discomfort in throat. Declined pain medication. Independent. Eating and voiding.
[2022-09-19 06:41] LABS: Basophils Absolute Auto 0.02 K/uL (0.00-0.30); Basophils Percent Auto 0.2 % (0.0-3.0); Eosinophils Absolute Auto 0.05 K/uL (0.00-0.50); Eosinophils Percent Auto 0.5 % (0.0-7.0); Hematocrit 39.6 % (33.0-51.0); Hemoglobin* 13.5 gm/dL (12.0-16.0); Immature Granulocytes Pct Auto 1.9 %; Lymphocytes Percent Auto 19.2 % (20-44); Mean Corpuscular HGB Conc 34 gm/dL (32-36); Mean Corpuscular Hemoglobin 29 pg (26-34); Mean Corpuscular Volume 84 fL (80-100); Neutrophils Percent Auto 69.2 % (42.0-72.0); Platelet Count* 220 K/uL (140-440); RDW Coefficient of Variation % 11.8 % (11.5-15.5); Red Blood Count 4.69 m/uL (4.00-5.20); White Blood Count* 10.41 K/uL (4.50-11.00)
[2022-09-19 06:43] LABS: Slide Review Reflex No
[2022-09-19 07:00] VITALS: BP 110/76; PULSE 84; RESP 16; TEMP 36.6; O2SAT 99
[2022-09-19 07:01] LABS: C Reactive Protein* 1.6 mg/dL (0.5-1.0)
[2022-09-19] MEDS: dexAMETHasone 2 MG TABLET 6 MG PO (09:30)
[2022-09-19] MEDS: SENNOSIDES/DOCUSATE TABLET 1 TAB PO (09:31)
--- NOTE | 2022-09-19 10:36 | P.DS_ITS ---
DS: Providers Provider Time Seen by Provider: 09:42 Date Seen: 09/19/22 Date of admission: 09/18/22 16:03 Primary care physician: Thad Nunez MD Admitting Clinician: Markell Novak MD Attending Physician on discharge: Ann Meraz MD Date of Discharge: 09/19/22 DS: Diagnosis Discharge Diagnosis (1) Abscess, peritonsillar: Status: Acute Problem details: Improving. CT neck also improving. (2) Systolic murmur: Status: Acute Problem details: Echocardiogram obtained and is normal. Suspect this is a flow murmur. (3) Penicillin allergy: Status: Acute Problem details: History of a rash that occurred when she was a baby. No further details available. DS: Summary Hospital Course Hospital Course: 37-year-old female who had sharp right throat pain swallowing and a positive strep test. CT soft tissue neck showed a right tonsillar or peritonsillar abscess. She was admitted to the hospital on clindamycin, due to a PCN allergy, and steroids. At 12:[address] scan was done which showed improvement. She also was showing signs of clinical improvement by this time. She is discharged home this morning in stable and improved condition. Time Spent with Patient Time attestation: Total time spent providing and/or coordinating discharge services: Exam Narrative: Exam Narrative: General: No acute distress. Awake, alert, oriented x3. Voice quality is improved and no longer muffled. No pallor. No jaundice. Oropharynx: Improving. No erythema today, tonsils are less enlarged. Mucous membranes moist. Cervical lymphadenopathy is also improved. Cardiovascular: Regular rate and rhythm. No murmurs, gallops, or rubs. Respiratory: Clear to auscultation bilaterally. No wheezes or crackles. Const: Vital Signs, click to edit/add: Vital Signs - 24 hr 09/18/22 11:00 09/18/22 15:30 09/18/22 19:00 Temperature 98.4 F 98 F 98.5 F Pulse Rate [Left P ulse Oximeter] 98 88 105 H Respiratory Rate 16 16 16 Blood Pressure [Le ft Arm] 121/83 127/82 141/84 H Pulse Oximetry 98 96 98 Oxygen Delivery Me thod Room Air Room Air Room Air 09/18/22 23:00 09/19/22 03:00 09/19/22 07:00 Temperature 98.3 F 97.9 F Pulse Rate [Left P ulse Oximeter] 80 84 Respiratory Rate 18 16 16 Blood Pressure [Le ft Arm] 100/66 110/76 Pulse Oximetry 98 99 Oxygen Delivery Me thod Room Air Room Air 09/19/22 07:00 Temperature Pulse Rate [Left P ulse Oximeter] 84 Respiratory Rate 16 Blood Pressure [Le ft Arm] Pulse Oximetry Oxygen Delivery Me thod DS: Data Data Completed and Pending Completed studies during hospitalization: Ordering Physician: Gabi Arguello M.D. Date of Service: 09/17/22 Procedure(s): CT soft tissue neck w con Accession Number(s): [id number] cc: Gabi Arguello M.D.; Thad Nunez M.D.~ For Patients: As a result of the Cures Act, medical imaging exams and procedure reports are released immediately into your electronic medical record. You may view this report before your referring provider. If you have questions, please contact your health care provider. INDICATION: Strep positive, difficulty swallowing TECHNIQUE: CT of the neck with 100 ml iodinated contrast agent. Coronal and sagittal reconstructions are included. COMPARISON: None available FINDINGS: There is asymmetric enhancement and fullness of the palatine tonsils, right worse than left, with suggestion of a peripherally enhancing fluid collection involving the medial right palatine tonsil. This collection is obscured due to dental amalgam artifact, but estimated at approximately 1.4 cm (series 3, image 26). Slight prominence of the adenoidal tonsillar tissue. Edematous soft tissue changes are noted throughout the right parapharyngeal and submandibular spaces, without additional discrete/loculated fluid collection. Presumably reactive prominent level 2 nodes are noted bilaterally, right larger and more numerous than left. The oral cavity is unremarkable. The remaining pharyngeal mucosal spaces are unremarkable. The laryngeal structures appear within normal limits, without evidence of overt airway compromise. No suspicious findings at the parotid, submandibular, or thyroid glands. The vascular structures opacify normally with contrast material. Regional osseous structures are unremarkable. Mucous retention cysts are noted in the right maxillary antrum. No paranasal sinus air-fluid levels or mastoid effusions. Unremarkable visualized orbits. Clear lung apices. IMPRESSION: 1. Finding consistent with tonsillitis, with evidence of a right palatine tonsillar/peritonsillar abscess measuring approximately 1.4 cm. 2. No overt airway compromise. Reactive cervical lymphadenopathy. Please note that all CT scans at this facility use dose modulation, iterative reconstruction, and/or weight-based dosing when appropriate to reduce radiation dose to as low as reasonably achievable. Dictated by Kate Henry MD @ 09/17/2022 12:34:42 PM (Electronically Signed) Ordering Physician: Ann Meraz M.D. Date of Service: 09/18/22 Procedure(s): CT soft tissue neck w con Accession Number(s): [id number] cc: Ann Meraz M.D.; Thad Nunez M.D.~ For Patients: As a result of the Cures Act, medical imaging exams and procedure reports are released immediately into your electronic medical record. You may view this report before your referring provider. If you have questions, please contact your health care provider. Indication: Follow-up peritonsillar abscess Technique: Volumetric multidetector CT images of the cervical soft tissues were obtained after the administration of low osmolar intravenous contrast. 98 cc Isovue 370 low osmolar intravenous contrast Comparison: None available. Findings: The partially visualized brain parenchyma is normal in attenuation without evidence of abnormal enhancement. The orbits and their contents are within normal limits. The paranasal sinuses are clear. The mastoid air cells are clear. The nasopharynx is unremarkable. The fossae of Rosenmuller are clear. There is again seen marked enlargement of the right greater than left palatine tonsils slightly improved from comparison with decreased size of intra tonsillar abscess measuring 9.5 x 8.1 millimeters, previously measuring 11.6 x 8.7 millimeters. The hypopharynx is clear. The deep spaces of the neck are otherwise preserved. The vocal folds are nonthickened with symmetrical appearance. The thyroid gland is normal in attenuation. There are reactive cervical lymph nodes again seen. The jugular veins are patent. The carotid arteries demonstrate no significant atherosclerotic narrowing. The lung apices are clear. The cervical vertebral body heights are grossly maintained with reversal of the normal cervical lordosis. 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 Impression: Demonstration of treatment response changes with decreased amparo pharyngeal edema and palatine tonsillar edema with decreasing size of previously seen right intra tonsillar/peritonsillar abscess currently measuring 9.5 millimeters, previously measuring 11.6 millimeters. Please note that all CT scans at this facility use dose modulation, iterative reconstruction, and/or weight-based dosing when appropriate to reduce radiation dose to as low as reasonably achievable. Dictated by Ricardo Rodriguez MD @ 09/18/2022 2:50:40 PM (Electronically Signed) Labs on day of discharge: Labs from last 24 hours 09/19/22 09/19/22 06:12 06:12 WBC 10.41 RBC 4.69 Hgb 13.5 Hct 39.6 MCV 84 MCH 29 MCHC 34 RDW Coeff of Anita 11.8 Plt Count 220 Neut % (Auto) 69.2 Lymph % (Auto) 19.2 L Morgan % (Auto) 9.0 Eos % (Auto) 0.5 Baso % (Auto) 0.2 Neut # (Auto) 7.20 H Lymph # (Auto) 2.00 Morgan # (Auto) 0.90 Eos # (Auto) 0.05 Baso # (Auto) 0.02 C-Reactive Protein 1.6 H Discharge Plan Discharge Disposition: Home, Self-Care Date of Admission: 09/18/22 16:03 Attending Provider on Discharge: Ann Meraz Primary Care Provider: Thad Nunez Condition: Improved Anticipated Discharge Date/Time: 09/19/22 10:48 Discharge Medications: New clindamycin HCl 300 mg capsule 300 mg PO QID Qty: 24 0RF Lactobacillus acidophilus 100 mg (1 billion cell) capsule 100 mmu cells PO TID Qty: 90 0RF No Action No Known Home Medications Discharge Orders: Discharge Order (Routine); Ordered 09/19/22 Ordered By: Ann Meraz Patient Education: Peritonsillar Abscess (DC) Additional Instructions: Follow-up with Dr. Sherman in 1 week. Activity Level: No Restrictions Discharge Diet: Regular Follow Up Appointments: Thad Nunez MD [Primary Care Provider] - Forms: [employer] Info Instructions
[2022-09-19 11:00] VITALS: BP 114/78; PULSE 93; RESP 16; TEMP 36.8; O2SAT 98
[2022-09-19 11:57] VITALS: RESP 16; TEMP 36.8
--- NOTE | 2022-09-19 15:23 | PC.NURSE ---
Pt alert and oriented x3, pleasant and cooperative. Pt denies pain, SOB, chest pain, and nausea vomiting. Pt up IND in room. Pt tolerating a regular diet. Verbal and written education given to pt. Pt verbalized understanding. Pt refused wheelchair and ambulated out. Pt IV removed at discharge at 1313.
== END 2022-09-19 13:13 | disposition home or self-care (01) ==
LOC: ED 14:39 → MEDSURG 09-18 19:10
PROVIDERS: Admitting Provider Family Medicine; Emergency Provider Family Medicine; PCP Family Medicine; Visit Provider Family Medicine
DX: J36 Peritonsillar abscess (principal); J02.0 Streptococcal pharyngitis; Z88.0 Allergy status to penicillin; T36.0X5A Adverse effect of penicillins, initial encounter; R59.0 Localized enlarged lymph nodes; Z86.59 Personal history of other mental and behavioral disorders; F41.9 Anxiety disorder, unspecified; R07.0 Pain in throat; R01.1 Cardiac murmur, unspecified; R13.10 Dysphagia, unspecified; Z86.19 Personal history of other infectious and parasitic diseases; M54.2 Cervicalgia; Z87.898 Personal history of other specified conditions
CPT/HCPCS: 36415; 70491; 80053; 81003; 81015; 85025; 86140; 86308; 87086; 87502; 87634; 87635; 93306; 99284; 99285; A9270; G0378; J1100; J1170; J2270; J2405; J7030; J7050; Q9967; S0077

== ENCOUNTER 2023-08-20 10:14 | Outpatient (CLI) | payer BC, SELFPAY ==
--- NOTE | 2023-08-20 10:15 | CRLHL7_ITS ---
For Patients: As a result of the Century Cures Act, medical imaging exams and procedure reports are released immediately into your electronic medical record. You may view this report before your referring provider. If you have questions, please contact your health care provider. BILATERAL SCREENING MAMMOGRAM WITH COMPUTER-AIDED DETECTION AND TOMOSYNTHESIS TECHNIQUE: CC and MLO views were obtained. These mammographic images have been obtained using full-field digital technique. These mammographic images were interpreted with the benefit of computer-aided detection. Breast Tomosynthesis was used in this interpretation. COMPARISON FILM: 05/15/22, 05/18/22(LT). FINDINGS: The breasts are heterogeneously dense, which may obscure small masses IMPRESSION: There is no radiographic evidence for malignancy. ASSESSMENT: BI-RADS Category 2: Benign RECOMMENDATION: Routine screening mammogram in 1 year. A lay language report of this examination will be provided to the patient. Leonardo Shipley M.D. Diagnostic/Nuclear Medicine Radiologist [email or web address] [place]/Dictated by: Leonardo Shipley MD @ 08/21/2023 8:46:00 AM (Electronically Signed)
== END 2023-08-20 10:15 | disposition home or self-care (01) ==
LOC: MAMMO 10:14
PROVIDERS: PCP Family Medicine; Visit Provider Family Medicine
DX: Z12.31 Encounter for screening mammogram for malignant neoplasm of breast (principal); R92.2 Inconclusive mammogram
CPT/HCPCS: 77063; 77067

== ENCOUNTER 2024-08-26 11:22 | Outpatient (CLI) | payer BC, SELFPAY ==
--- NOTE | 2024-08-26 11:30 | CRLHL7_ITS ---
For Patients: As a result of the Century Cures Act, medical imaging exams and procedure reports are released immediately into your electronic medical record. You may view this report before your referring provider. If you have questions, please contact your health care provider. BILATERAL SCREENING MAMMOGRAM WITH COMPUTER-AIDED DETECTION AND TOMOSYNTHESIS TECHNIQUE: CC and MLO views were obtained. These mammographic images have been obtained using full-field digital technique. These mammographic images were interpreted with the benefit of computer-aided detection. Breast Tomosynthesis was used in this interpretation. COMPARISON FILM: 08/20/23, 05/15/22. FINDINGS: The breasts are heterogeneously dense, which may obscure small masses. IMPRESSION: There is no radiographic evidence for malignancy. ASSESSMENT: BI-RADS Category 1: Negative RECOMMENDATION: Routine screening mammogram in 1 year. A lay language report of this examination will be provided to the patient. Thad Sanchez M.D. Diagnostic Radiologist [email or web address] SP/Dictated by: Thad Sanchez MD @ 08/26/2024 12:11:00 PM (Electronically Signed)
== END 2024-08-26 11:23 | disposition home or self-care (01) ==
LOC: MAMMO 11:22
PROVIDERS: PCP Family Medicine; Visit Provider Family Medicine
DX: Z12.31 Encounter for screening mammogram for malignant neoplasm of breast (principal); R92.333 Mammographic heterogeneous density, bilateral breasts
CPT/HCPCS: 77063; 77067